=== PATIENT | female | born 1985 | race Caucasian/White ===

== ENCOUNTER 2023-04-25 11:47 | Emergency (ER) | payer OTHER, SELFPAY ==
[2023-04-25 11:57] VITALS: BP 132/107; PULSE 103; RESP 20; TEMP 37.6; O2SAT 97; BMI 35.4
--- NOTE | 2023-04-25 12:06 | XR_ITS ---
The [address] [address] Patient Name: KRISTOPHER SERRATO MRN: [id number] date: 1985 Sex: F Assigned Patient Location: ER Current Patient Location: ER Accession/Order Number: [id number] Exam Date: 04/25/2023 12:28 Report Date: 04/25/2023 12:45 At the request of: GEORGIA BOYKIN Procedure: XR chest 2V EXAM: XR chest 2V HISTORY: SOB, URI COMPARISON: None. TECHNIQUE: PA and lateral views of the chest. FINDINGS: The cardiomediastinal silhouette is normal. No focal consolidation is identified. There is no pneumothorax. No pleural effusion is noted. The osseous structures are intact. XR/XR chest 2V IMPRESSION: No acute cardiopulmonary process. Electronically authenticated by: ADAMA RASMUSSEN Date: 04/25/2023 12:45
[2023-04-25 12:46] LABS: Influenza Virus A Antigen Negative; Influenza Virus B Antigen Negative; Internal Control Within Normal Limits
[2023-04-25 12:47] LABS: Internal Control Within Normal Limits; SARS-CoV-2 Ag NEGATIVE (NEGATIVE); Strep A Antigen Screen Negative
--- NOTE | 2023-04-25 13:52 | ED.URI1 ---
HPI - URI/Sore Throat General Chief Complaint: Upper Respiratory Infection Stated Complaint: FEVER SORE THROAT Time Seen by Provider: 04/25/23 13:19 Source: patient Limitations: no limitations History of Present Illness HPI Narrative: Patient is a 37-year-old female presents to the emergency department for sore throat, nasal congestion, nonproductive coughing for the last 3 days. She reports fevers, body aches. No medications taken prior to arrival today. She states she had a temperature of 102.0 Fahrenheit yesterday. She has had no vomiting but reports nausea. No concern for . She request a work note for yesterday and today. Related Data Previous Rx's Medication Instructions Recorded rcwfbsaortkasje-ockyxabbiifyfng-AE 10 ml PO Q6H PRN cold symptoms 04/25/23 2 mg-30 mg-10 mg/5 mL oral syrup #200 mL (Bromfed DM) ondansetron 4 mg disintegrating 4 mg PO Q6H PRN nausea and 04/25/23 tablet vomiting #12 tabs Allergies Allergy/AdvReac Type Severity Reaction Status Date / Time No Known Drug Allergies Allergy Verified 04/25/23 11:57 Review of Systems ROS Constitutional Reports: fever; Denies: chills Ears, nose, mouth, and throat Reports: throat pain and nasal congestion Cardiovascular Denies: chest pain Respiratory Reports: cough; Denies: shortness of breath Gastrointestinal Reports: nausea; Denies: vomiting or diarrhea Musculoskeletal Denies: back pain Integumentary/Breast Denies: rash Neurological Denies: headache Exam Narrative Exam Narrative: Gen.: Awake, alert, in no distress Head: Normocephalic, atraumatic ENT: Moist mucous membranes, No pharyngeal erythema, no tonsillar edema or exudate. Bilateral TMs bulging with no erythema or injection Respiratory: No respiratory distress, lungs clear bilaterally Cardio: Regular rate and rhythm Extremities: Moves extremities equally Psych: Normal mood and affect Neuro: No focal neuro deficit Skin: Warm, dry, intact Constitutional Vital Signs, click to edit/add: Last Vital Signs Temp 99.6 F 04/25/23 11:57 Pulse 103 H 04/25/23 11:57 Resp 20 04/25/23 11:57 BP 132/107 H 04/25/23 11:57 Pulse Ox 97 04/25/23 11:57 O2 Del Method Room Air 04/25/23 11:57 Course Vital Signs Vital signs: Vital Signs Temperature 99.6 F 04/25/23 11:57 Pulse Rate 103 H 04/25/23 11:57 Respiratory Rate 20 04/25/23 11:57 Blood Pressure 132/107 H 04/25/23 11:57 Pulse Oximetry 97 04/25/23 11:57 Oxygen Delivery Method Room Air 04/25/23 11:57 Temperature 99.6 F 04/25/23 11:57 Pulse Rate 103 H 04/25/23 11:57 Respiratory Rate 20 04/25/23 11:57 Blood Pressure 132/107 H 04/25/23 11:57 Pulse Oximetry 97 04/25/23 11:57 Oxygen Delivery Method Room Air 04/25/23 11:57 MDM - URI/Sore Throat MDM Narrative Medical decision making narrative: Patient is negative for strep, influenza and COVID. Chest x-ray reviewed by the radiologist with no evidence of acute cardiopulmonary changes. Patient maintains normal vital signs, she appears well-hydrated and nontoxic. Treated with Decadron in the ER. Work note provided. Bromfed-DM and Zofran given for home. Follow-up with PCP and return to the ER if symptoms change or worsen Medical Records Attestation: I reviewed the patient's medical records. Lab Data Attestation: I reviewed the patient's lab results. Labs: Lab Results 04/25/23 Range/Units 12:03 Influenza Type A Ag Negative Influenza Type B Ag Negative SARS-CoV-2 Ag (CV2AG) Negative (NEGATIVE) Streptococcus Screen Negative Imaging Data Chest x-ray: Attestation: I have reviewed the pertinent imaging results. Radiologist's impression: ITS Impressions Chest X-Ray 04/25/23 12:06 IMPRESSION: No acute cardiopulmonary process. Electronically authenticated by: ADAMA RASMUSSEN Date: 04/25/2023 12:45 Discharge Plan Discharge Chief Complaint: Upper Respiratory Infection Clinical Impression: Upper respiratory infection Patient Disposition: Home, Self-Care Time of Disposition Decision: 13:50 Condition: Good Prescriptions / Home Meds: New hdmuuqhetuqvamp-qiinjkynf-PO [Bromfed DM] 2-30-10 mg/5 mL syrup 10 ml PO Q6H PRN (Reason: cold symptoms) Qty: 200 0RF ondansetron 4 mg tablet,disintegrating 4 mg PO Q6H PRN (Reason: nausea and vomiting) Qty: 12 0RF Instructions: Upper Respiratory Infection (ED) Stand Alone Forms: Portal Instructions Referrals: KATLYN OROZCO [Primary Care Provider] - 1 week
[2023-04-25] MEDS: DEXAMETHASONE SOD PHOS 10 MG/ML VIAL PO (13:54)
== END 2023-04-25 13:59 | disposition home or self-care (01) ==
PROVIDERS: Emergency Provider Emergency Medicine; PCP Nurse Practitioner
DX: J06.9 Acute upper respiratory infection, unspecified (principal); Z20.822 Contact with and (suspected) exposure to COVID-19
CPT/HCPCS: 71046; 87070; 87804; 87811; 87880; 99284; J1100

== ENCOUNTER 2024-01-24 12:51 | Emergency (ER) | payer OTHER, SELFPAY ==
[2024-01-24 13:01] VITALS: BP 134/82; PULSE 78; TEMP 36.8; O2SAT 99; BMI 36.8
--- NOTE | 2024-01-24 13:03 | XR_ITS ---
The [address] [address] Patient Name: KRISTOPHER SERRATO MRN: [id number] date: 1985 Sex: F Assigned Patient Location: ED.MAIN Current Patient Location: ER Accession/Order Number: [id number] Exam Date: 01/24/2024 13:25 Report Date: 01/24/2024 13:50 At the request of: GEORGIA BOYKIN Procedure: XR foot RT min 3V PROCEDURE: XR ankle RT min 3V, XR foot RT min 3V HISTORY: pain COMPARISON: None. FINDINGS: BONES:No fracture, acute abnormality, or significant arthropathy. SOFT TISSUES:Prominent soft tissue swelling surrounding the foot and ankle. EFFUSION:None visible. OTHER: Negative. XR/XR foot RT min 3V IMPRESSION: 1. Prominent swelling of uncertain etiology. 2. No acute bone abnormality or significant degenerative joint disease. Electronically authenticated by: DARRON CANNON Date: 01/24/2024 13:50
--- NOTE | 2024-01-24 13:03 | XR_ITS ---
The [address] [address] Patient Name: KRISTOPHER SERRATO MRN: [id number] date: 1985 Sex: F Assigned Patient Location: ED.MAIN Current Patient Location: ER Accession/Order Number: [id number] Exam Date: 01/24/2024 13:25 Report Date: 01/24/2024 13:50 At the request of: GEORGIA BOYKIN Procedure: XR ankle RT min 3V PROCEDURE: XR ankle RT min 3V, XR foot RT min 3V HISTORY: pain COMPARISON: None. FINDINGS: BONES:No fracture, acute abnormality, or significant arthropathy. SOFT TISSUES:Prominent soft tissue swelling surrounding the foot and ankle. EFFUSION:None visible. OTHER: Negative. XR/XR ankle RT min 3V IMPRESSION: 1. Prominent swelling of uncertain etiology. 2. No acute bone abnormality or significant degenerative joint disease. Electronically authenticated by: DARRON CANNON Date: 01/24/2024 13:50
--- OUTSIDE RECORDS SUMMARY | 2024-01-24 13:15 | XMS_ITS | CCD ---
Author Organization [facility] Inform ion Partnership [facility] Care Team Providers Care Accredited Legal Secretary Name Role Phone REQUEST, DR NONE LISTED Primary Care Unavaila carolina CANNON, DR DARRON Combs Consulting Unavailable OK FIELDS Attending Unavailable OK FIELDS Admitting Unavailable OK FIELDS Consulting Unavailable ROSEY HYLTON Consulting Unavailable Ladi Kendall Unavailable Katlyn Lawson Primary Care [facility] er SOBEIDA FRENCH Attending Unavailable KATLYN AMEZCUA Referring Unavailable KATLYN AMEZCUA Primary Care Unavailable Allergies Allergy Classification Reported Allergen(s) Allergy Type Date of Onset Reaction(s) Facility (2 sources) Bee Venom Protein (Honey Bee); Translations: [BEE VENOM PROTEIN (HONEY BEE)] Propensity to adverse reactions to drug 07-05-2012 [facility] Work Phone: Medications Current Medications Medication Drug Class(es) Dates Sig (Normalized) Sig (Original) etonogestrel 68 mg drug implant (1 source) Progestin etonogestreL (NEXPLANON) 68 mg implant 1 each (68 mg total) by subdermal route once. 0 Active meclizine hydrochloride 12.5 mg oral tablet (2 sources) Antiemetic Start: 06-01-2023 take 1 tablet by mouth three times daily as needed for dizziness meclizine (ANTIVERT) 12.5 mg tablet Indications: Vertigo Take 1 tablet (12.5 mg total) by mouth 3 (three) times a day as needed for dizziness. 30 tablet 1 06/01/2023 Active Start: 01-22-2023 take 1-2 tablets by mouth every twelve hours as needed Meclizine HCl 50 MG 1-2 tablet as needed Orally every 12 hrs for 3 days Dec, Active methylPREDNISolone 4 mg oral tablet (1 source) Corticosteroid Start: 01-22-2023 Medrol (Semaj) 4 MG as directed Orally for daily dose take half with breakfast half with dinner for 6 days Dec, Active mometasone furoate 0.05 mg/actuat metered dose nasal spray (1 source) Corticosteroid Start: 10-02-2022 take 2 spray(s) nasal route in the morning mometasone (NASONEX) 50 mcg/actuation nasal spray Indications: Seasonal allergic rhinitis, unspecified trigger Administer 2 sprays into each nostril in the morning. 17 g 5 10/02/2022 Active mupirocin 0.02 mg/mg topical ointment (1 source) RNA Synthetase Inhibitor Antibacterial Start: 01-22-2023 Mupirocin 2 % 1 application Externally Three times a day for 7 days Dec, Active ondansetron 4 mg disintegrating oral tablet (1 source) Serotonin-3 Receptor Antagonist Start: 04-25-2023 ondansetron ODT (ZOFRAN ODT) 4 mg disintegrating tablet DISSOLVE 1 (ONE) TABLET ON THE TONGUE EVERY 6 HOURS NEEDED FOR NAUSEA AND VOMITING 0 04/25/2023 Active predniSONE 20 mg oral tablet (1 source) Start: 06-01-2023 End: 06-08-2023 take 1 tablet by mouth in the morning predniSONE (DELTASONE) 20 mg tablet Indications: Eustachian tube dysfunction, left Take 1 tablet (20 mg total) by mouth in the morning for 7 days. 7 tablet 0 06/01/2023 06/08/2023 Active Problems Active Problems Problem Classification Problem Date Documented Date Episodic/Chronic Conditions associated with dizziness or vertigo (2 sources) Vertigo; Translations: [Dizziness and giddiness] Onset: 06-01-2023 06-01-2023 Episodic E Codes: Struck by; against (1 source) Striking against or struck by other objects, initial encounter; Translations: [STRIKING AGNST/STRUCK OTH OBJ INIT] Onset: 08-14-2022 Episodic Immunizations and screening for infectious disease (1 source) Encounter for immunization; Translations: [ENCOUNTER FOR IMMUNIZATION] Onset: 08-14-2022 Episodic Other injuries and conditions due to external causes (3 sources) Unspecified injury of right foot, initial encounter; Translations: [UNSPECIFIED INJURY RT FOOT INITIAL] Onset: 08-10-2022 Episodic Other skin disorders (1 source) Disorder of the skin and subcutaneous tissue, unspecified Episodic Other upper respiratory infections (1 source) Acute pansinusitis, unspecified Episodic Otitis media and related conditions (3 sources) Unspecified nonsuppurative otitis media, right ear; Translations: [Dysfunction of left eustachian tube] Onset: 06-01-2023 Episodic Screening and history of mental health and substance abuse codes (1 source) Personal history of nicotine dependence; Translations: [PERSONAL HISTORY OF NICOTINE DEPEND] Onset: 08-14-2022 Episodic Superficial injury; contusion (1 source) Contusion of right great toe without damage to nail, initial encounter; Translations: [CONTUS RT GRT TOE W/O DMG NAIL INIT] Onset: 08-14-2022 Episodic Unclassified (1 source) Earache Onset: 06-01-2023 Past or Other Problems Problem Classification Problem Date Documented Date Episodic/Chronic Contraceptive and procreative management (1 source) Subcutaneous contraceptive implant present; Translations: [Presence of (intrauterine) contraceptive device] Onset: 09-22-2022 09-22-2022 Episodic Mood disorders (1 source) Mood disorders Onset: 06-01-2023 06-01-2023 Unclassified (1 source) Onset: 10-02-2022 10-02-2022 Vital Signs Date Time Vital Sign Value Performing Clinician Facility 06-01-2023 11:12-0500 Body height 170.2 cm Sobeida Manolo ALEXIS Work Phone: [facility] 06-01-2023 11:12-0500 Body mass index (BMI) [Ratio] 39.72 kg/m2 Sobeida Manolo ALEXIS Work Phone: [facility] 06-01-2023 11:12-0500 Body temperature 98.4 [degF] Sobeida Eliamerari VANESA Work Phone: [facility] 06-01-2023 11:12-0500 Body weight 115.03 kg Sobeida Manolo ALEXIS Work Phone: [facility] 06-01-2023 11:12-0500 Diastolic blood pressure 70 mm[Hg] Sobeida ZEPEDAVACUUM METALIZING SUPERVISOR Work Phone: [facility] 06-01-2023 11:12-0500 Heart rate 80 /min Sobeida ZEPEDAVACUUM METALIZING SUPERVISOR Work Phone: [facility] 06-01-2023 11:12-0500 SaO2% (BldA) [Mass fraction] 97 % Sobeida ZEPEDAVACUUM METALIZING SUPERVISOR Work Phone: [facility] 06-01-2023 11:12-0500 Systolic blood pressure 100 mm[Hg] Sobeida ZEPEDAVACUUM METALIZING SUPERVISOR [facility] 01-22-2023 11:35-0400 Body height 172.72 cm Ladi Kendall Other [facility] Other 01-22-2023 11:35-0400 Body mass index (BMI) [Ratio] 36.03 kg/m2 Ladi Kendall Other [facility] Other 01-22-2023 11:35-0400 Body temperature 98.1 [degF] Ladi Kendall Other [facility] Other 01-22-2023 11:35-0400 Body weight 107.5 kg Ladi Kendall Other [facility] Other 01-22-2023 11:35-0400 Diastolic blood pressure 79 mm[Hg] Ladi Kendall Other [facility] Other 01-22-2023 11:35-0400 Respiratory rate 18 /min Ladi Kendall Other [facility] Other 01-22-2023 11:35-0400 SaO2% (BldA) [Mass fraction] 99 % Ladi Kendall Other [facility] Other 01-22-2023 11:35-0400 Systolic blood pressure 150 mm[Hg] Ladi Kendall Other [facility] Other Encounters Encounter Date Encounter Type Care Provider Facility Start: 06-01-2023 End: 06-01-2023 ambulatory KORI KUNS [facility] Start: 06-01-2023 End: 06-01-2023 Office outpatient visit 15 minutes Sobeida French ACTIVITY THERAPY TEACHER-VACUUM METALIZING SUPERVISOR Work Phone: [facility] - [facility] Comment on above: Vertigo (Primary Dx) ; Eustachian tube dysfunction, left Start: 01-22-2023 End: 01-22-2023 ambulatory Ladi Kendall Other [facility] Other Start: 01-22-2023 Office outpatient ne w 30 minutes Ladi Kendall [facility] Start: 08-10-2022 End: 08-10-[address] NONE LISTED REQUEST Facility: Procedures Date Procedure Procedure Detail Performing Clinician Start: 06-01-2023 Adult depression scr eening assessment Sobeida French ACTIVITY THERAPY TEACHER-VACUUM METALIZING SUPERVISOR Work Phone: Start: 09-26-2022 Microscopic observat ion [Identifier] in Cervix by Cyto stain Sobeida French ACTIVITY THERAPY TEACHER-VACUUM METALIZING SUPERVISOR Work Phone: Plan of Treatment Date Care Activity Detail Author Start: 08-10-2032 DTaP,Tdap and Td Vaccines (2 - Td or Tdap) DTaP,Tdap and Td Vaccines (2 - Td or Tdap) [facility] Start: 09-26-2025 Screening for malign ant neoplasm of cervix Pap Smear [facility] Start: 05-31-2024 Adult BMI Screening Adult BMI Screen ing [facility] Start: 05-31-2024 Depression Screening Depression Scre ening [facility] Start: 05-31-2024 Tobacco Screening Tobacco Screening [facility] Start: 10-03-2023 Adult BMI Follow Up Plan Adult BMI Follow Up Plan [facility] Start: 12-01-2022 Influenza vaccination Influenza Vacc ine [facility] Immunizations Immunization Date Immunization Notes Care Provider Micaela mack 01-31-2020 influenza virus vaccine, unspecified formulation Sobeida Manolo LOZANO-VACUUM METALIZING SUPERVISOR Work Phone: [facility] Payers Date Payer Category Payer Private Health Insurance [employer] A ETNA POS [id number] 2021-Present [phone] [address] [place] [address] [id number] 1985 Unknown [id number] 1983 Unknown [id number] 1961 Private Health Insurance [id number] Social History Date Type Detail Facility Unknown if ever smoked [facility] Other Start: 09-11-2018 End: 06-01-2023 [facility] At [facility] Start: 09-20-2022 [facility] End: 04-02-2015 History of tobacco use Current smoker [facility] End: 04-02-2015 History of tobacco use Cigarette Smoker [facility] Start: 09-20-2022 Tobacco use and exposure Smokeless tobacco non-user [facility] Start: 06-01-2023 Alcohol intake Ex-drinker (finding) [facility] Start: 09-11-2018 End: 06-01-2023 History of Social function [facility] Adolescent depressio n screening assessment 0 [facility] Start: 10-02-2022 Alcohol Comment on occasion [facility] Start: 1985 Sex Assigned At Not on file P [facility] History of Present illness Narrative 06-01-2023 Sobeida French, MARTA-ANAHY - 06/01/2023 11:00 AM EST Note Date & Type Note Facility 06-01-2023 History of Present illness Narrative Images from the original note were not included. Subjective Patient ID: Kristopher Talbot is a 38 y.o. female. Having left ear pain and pain into her left jaw with vertigo that started a few days ago She is also getting some pain that goes into the posterior left neck region this also occurred back in apr with the vertigo The vertigo is intermittent, it has not been interfering with her work She has some mild feelings of congestion She has been under a lot of pressure lately with the recent of her father and she has had to take on many tasks helping her mother in addition to dealing with grief The following portions of the patient's history were reviewed and updated as appropriate: allergies, current medications, past family history, past medical history, past social history, past surgical history, problem list, and medication reconciliation was completed including current medication and post discharge medication. Review of Systems Constitutional: Positive for fatigue. HENT: Positive for ear pain, rhinorrhea and sinus pressure. Eyes: Negative. Respiratory: Negative. Cardiovascular: Negative. Gastrointestinal: Negative. Endocrine: Negative. Genitourinary: Negative. Musculoskeletal: Positive for myalgias. Skin: Negative. Neurological: Positive for light-headedness (vertigo). Hematological: Negative. Psychiatric/Behavioral: Negative. Objective Physical Exam Vitals and nursing note reviewed. Constitutional: Appearance: She is obese. HENT: Head: Normocephalic. Jaw: Tenderness and pain on movement present. Comments: Tenderness of the TMJ Right Ear: Tympanic membrane, ear canal and external ear normal. Left Ear: Tympanic membrane, ear canal and external ear normal. Nose: Congestion and rhinorrhea present. Comments: The left nasal mucosa is swollen with clear rhinorrhea Eyes: Extraocular Movements: Right eye: Nystagmus present. Left eye: Nystagmus present. Conjunctiva/sclera: Conjunctivae normal. Cardiovascular: Rate and Rhythm: Normal rate and regular rhythm. Heart sounds: Normal heart sounds. No murmur heard. Pulmonary: Effort: Pulmonary effort is normal. Breath sounds: Normal breath sounds. Musculoskeletal: Cervical back: Neck supple. Tenderness (posterior neck is tender but no swelling or restriction in range of motion) present. Lymphadenopathy: Cervical: No cervical adenopathy. Skin: General: Skin is warm and dry. Capillary Refill: Capillary refill takes less than 2 seconds. Neurological: Mental Status: She is alert and oriented to person, place, and time. Sensory: Sensation is intact. Gait: Gait normal. Psychiatric: Thought Content: Thought content normal. Judgment: Judgment normal. Assessment/Plan Kristopher was seen today for earache. Diagnoses and all orders for this visit: Vertigo - meclizine (ANTIVERT) 12.5 mg tablet; Take 1 tablet (12.5 mg total) by mouth 3 (three) times a day as needed for dizziness. Eustachian tube dysfunction, left - predniSONE (DELTASONE) 20 mg tablet; Take 1 tablet (20 mg total) by mouth in the morning for 7 days. She has a lot of nasal congestion which is likely causing the eustachian tube dysfunction and ear pain, will treat with prednisone, this may be causing her intermittent vertigo as well, she may use meclizine as needed for this For her neck she may use ibuprofen and ice She also has some tenderness of the tmj which may be contributing to this as well, again Ice and ibuprofen, she is under a lot of stress and these are likely contributing factors VANESA Caruso 06/01/23 1247 documented in this encounter [facility] Evaluation note 01-22-2023 Note Date & Type Note Facility 01-22-2023 Evaluation note Encounter Date Diagnosis Assessment Notes Dec, Right otitis media with effusion (ICD-10 - H65.91) Rx sent, use as directed. Nothing in affected ear or submerging head under water until resolution of s/s. Immediate eval if warning s/s of intractable pain, fevers, hearing loss, ear drainage, which were discussed with pt while in clinic. Otherwise f/u if new or worsening symptoms despite treatment. Dec, Acute pansinusitis (ICD-10 - J01.40) low suspicion for bacterial infection at this time. steroid rx sent, take as directed. no NSAIDs while on steroid therapy. otc tylenol prn. may continue supportive care with c otc meds prn. recommended hot steam baths and/or cool mist humidifier. push rest/fluids. reinforced universal infection control protocols and good hand hygiene for infection control. pt education and anticipatory guidance provided on viral vs bacterial infection progression. immediate eval if warning s/s of intractable fevers, respir distress or other emergent symptoms. otherwise f/u with PCP if febrile or new/worsening s/s. Dec, Skin lesion (ICD-10 - L98.9) rx sent, use as directed. keep area clean and dry. avoid picking. f/u if new/worsening symptoms despite tx. [facility] Other Clinical Note 08-10-2022 Note Date & Type Note Facility 08-10-2022 Note PROCEDURE: XR FOOT R T MIN 3 VIEWS HISTORY: Injury of right foot ; acute first toe pain after injury COMPARISON: None. FINDINGS: BONES:No fracture, acute abnormality, or significant arthropathy. SOFT TISSUES:Dorsal medial soft tissue swelling. No radiopaque foreign body. EFFUSION:None visible. OTHER: Negative. IMPRESSION: 1. No acute bone abnormality. 2. Dorsal medial swelling suggesting soft tissue injury. Electronically authenticated by: DARRON CANNON Date: 2022-08-10 14:21 [facility] Evaluation note Note Date & Type Note Facility Evaluation note Diagnosis Vertigo- Primary Dizziness and giddiness Eustachian tube dysfunction, left [facility] History general Narrative - Reported Note Date & Type Note Facility History general Narrative - Reported Type Surgical History appendectomy Surgical History C section Hospitalization History See Above [facility] Other Instructions Note Date & Type Note Facility Instructions Not on filedocumented in this en counter [facility] Summary Purpose Family History No Family History Records FoundNo Family History Records Found Advance Directives No Advanced Directives Records FoundNo Advanced Directives Records Found Additional Source Comments INFORMATION SOURCE (unrecogn ized section and content) DATE CREATED AUTHOR 08/14/2022 [facility] DATE CREATED AUTHOR AUTHOR'S ORGANIZ ATION 06/03/2023 [facility] REASON FOR VISIT (unrecogniz ed section and content) Reason Comments Earache Care Teams (unrecognized sec tion and content) Accredited Legal Secretary Relationship Specialty Start Date End Date Katlyn Amezcua, ACTIVITY THERAPY TEACHER-STATION INSTALLER AND REPAIRER [address] [place] [address] PCP - General Family Medicine 11/06/22 FOR RECORDS PERTAINING TO PATIENTS WHO ARE OR HAVE BEEN ENROLLED IN A CHEMICAL DEPENDENCY/SUBSTANCEABUSE PROGRAM, SOME INFORMATION MAY BE OMITTED. This clinical summary was aggregated from multiple sources. Caution should be exercised in using it in the provision of clinical care. This summary normalizes information from multiple sources, and as a consequence, information in this document may materially change the coding, format and clinical context of patient data. In addition, data may be omitted in some cases. CLINICAL DECISIONS SHOULD BE BASED ON THE PRIMARY CLINICAL RECORDS. [employer] provides no warranty or guarantee of the accuracy or completeness of information in this document.
--- NOTE | 2024-01-24 14:16 | ED_ITS ---
HPI HPI - General Adult General Stated complaint: PAIN LOWER EXTREMITY, RIGHT Time Seen by Provider: 01/24/24 13:54 Source: patient Mode of arrival: Wheelchair Limitations: no limitations History of Present Illness HPI narrative: Patient is a 38-year-old female who presents for evaluation of right ankle pain. Patient complains of pain over the medial and lateral right ankle for the last day. She denies any mechanism of trauma or injury but she has been walking more than normal. She states she has pain with trying to bear weight. She has not noticed any redness, warmth, open wounds or drainage. She has no calf pain or swelling. No medications taken prior to arrival. She has no concern for . Related Data Previous Rx's ?Medication ?Instructions ?Recorded gkqafbjvkhgvahd-crfmqebodphyaoq-QW 10 ml PO Q6H PRN cold symptoms 04/25/23 2 mg-30 mg-10 mg/5 mL oral syrup #200 mL (Bromfed DM) ondansetron 4 mg disintegrating 4 mg PO Q6H PRN nausea and 04/25/23 tablet vomiting #12 tabs hydrocodone 5 mg-acetaminophen 325 1 tab PO Q6H PRN pain 3 days #12 01/24/24 mg tablet tabs ketorolac 10 mg tablet 10 mg PO TID PRN pain #10 tabs 01/24/24 methylprednisolone 4 mg tablets in See Rx Instructions .Route 01/24/24 a dose pack (Medrol (Semaj)) .COMPLEX #21 ea Allergies Allergy/AdvReac Type Severity Reaction Status Date / Time No Known Drug Allergies Allergy Verified 04/25/23 11:57 Opioid HPI Opioid Management Most Recent Opioid Data: No Data to Display Review of Systems ROS Constitutional Denies: fever or chills Ears, nose, mouth, and throat Denies: throat pain Cardiovascular Denies: chest pain Respiratory Denies: shortness of breath Gastrointestinal Denies: nausea or vomiting Genitourinary Denies: painful urination Musculoskeletal Reports: extremity pain and joint pain; Denies: back pain or neck pain Integumentary/Breast Denies: rash Neurological Denies: numbness in extremities or weakness in extremities Hematologic/Lymphatic Denies: easy bruising or easy bleeding Exam Narrative Exam Narrative: Gen.: Awake, alert, in no distress Head: Normocephalic, atraumatic ENT: Moist mucous membranes Respiratory: No respiratory distress Extremities: Diffuse tenderness of the medial and lateral malleolus with no bony point tenderness or obvious deformity. 2+ right DP pulse with normal flexion ex tension of the toes of the right foot. No redness, induration or warmth noted of the foot or ankle. No bony tenderness of the right fifth metatarsal or Achilles tendon. Psych: Normal mood and affect Neuro: No focal neuro deficit Skin: Warm, dry, intact Constitutional Vital Signs, click to edit/add: Last Vital Signs Temp 98.3 F 01/24/24 13:01 Pulse 78 01/24/24 13:01 Resp 18 01/24/24 13:01 BP 134/82 01/24/24 13:01 Pulse Ox 99 01/24/24 13:01 O2 Del Method Room Air 01/24/24 13:01 Course Vital Signs Vital signs: Vital Signs Temperature 98.3 F 01/24/24 13:01 Pulse Rate 78 01/24/24 13:01 Respiratory Rate 18 01/24/24 13:01 Blood Pressure 134/82 01/24/24 13:01 Pulse Oximetry 99 01/24/24 13:01 Oxygen Delivery Method Room Air 01/24/24 13:01 Temperature 98.3 F 01/24/24 13:01 Pulse Rate 78 01/24/24 13:01 Respiratory Rate 18 01/24/24 13:01 Blood Pressure 134/82 01/24/24 13:01 Pulse Oximetry 99 01/24/24 13:01 Oxygen Delivery Method Room Air 01/24/24 13:01 Medical Decision Making MDM Narrative Medical decision making narrative: X-rays of the right foot and ankle show no evidence of acute fracture or dislocation. Patient had bone fragments removed approximately 15 years ago from the right ankle surgically by Dr. He, she can follow-up with him in the office. At this time I do not see any physical exam findings concerning for septic arthritis, gout or cellulitis. Patient treated for pain, placed in an Dilshad wrap and Aircast. She declined crutches. Rest, ice, elevate. Follow-up with orthopedics and return to the ER if symptoms change or worsen. [place], Toradol, Medrol Dosepak given for home. SUPERVISED APC VISIT, PHYSICIAN ATTESTATION: Based on the medical record the care appears appropriate. ? Medical Records Medical records reviewed: Yes I reviewed the patient's medical records Imaging Data XR ankle: Attestation: I have reviewed the pertinent imaging results. Radiologist's impression: ITS Impressions Ankle X-Ray 01/24/24 13:03 IMPRESSION: 1. Prominent swelling of uncertain etiology. 2. No acute bone abnormality or significant degenerative joint disease. Electronically authenticated by: OUSMANE CANNON Date: 01/24/2024 13:50 Foot X-Ray 01/24/24 13:03 IMPRESSION: 1. Prominent swelling of uncertain etiology. 2. No acute bone abnormality or significant degenerative joint disease. Electronically authenticated by: OUSMANE CANNON Date: 01/24/2024 13:50 Discharge Plan Discharge Clinical Impression: Acute right ankle pain Patient Disposition: Home, Self-Care Time of Disposition Decision: 14:13 Condition: Good Mode of Transportation: Private Vehicle Prescriptions / Home Meds: New hydrocodone-acetaminophen 5-325 mg tablet 1 tab PO Q6H PRN (Reason: pain) 3 Days Qty: 12 0RF Rx Instructions: DX: M25.571 methylprednisolone [Medrol (Semaj)] 4 mg tablets,dose pack See Rx Instructions .ROUTE .COMPLEX Qty: 21 0RF Rx Instructions: Taper as directed ketorolac 10 mg tablet 10 mg PO TID PRN (Reason: pain) Qty: 10 0RF No Action bskykcpoglkaitp-axbuxmbwh-NS [Bromfed DM] 2-30-10 mg/5 mL syrup 10 ml PO Q6H PRN (Reason: cold symptoms) Qty: 200 0RF ondansetron 4 mg tablet,disintegrating 4 mg PO Q6H PRN (Reason: nausea and vomiting) Qty: 12 0RF Print Language: Romansh Instructions: Arthralgia (ED) Referrals: Ousmane He MD [Physician] - As needed KATLYN OROZCO [Primary Care Provider] - 1 week Discharge Date/Time: 01/24/24 14:28
[2024-01-24] MEDS: HYDROCODONE/ACET 5-325 MG TABLET 1 TAB PO (14:21)
== END 2024-01-24 14:28 | disposition home or self-care (01) ==
PROVIDERS: Emergency Provider Emergency Medicine; PCP Nurse Practitioner
DX: M25.571 Pain in right ankle and joints of right foot (principal)
CPT/HCPCS: 73610; 73630; 99283